=== PATIENT | male | born 1965 | race Caucasian/White ===

== ENCOUNTER 2017-04-04 12:21 | Emergency (ER) | payer OTHER, MEDICAID ==
[~2017-04-04] VITALS: Ht 185.4 cm; Wt 106.6 kg
[~2017-04-04 12:21] MED LIST: BACL20TA4 PO; GABA-636 PO; LAM25 PO
--- NOTE | 2017-04-04 12:28 | NUR ---
PATIENT STATED HE FEELS BETTER NOW AND DONT WANT TO BE SEEN AND WILL LEAVE AMA. SEEN BY DR. TATE AFTER BEING NOTIFIED. PATIENT REFUSED TREAT. AND VS TAKEN. PATIENT AWAKE ALERT ORIENTED. Addendum: 04/04/17 at [address] Tate spoke with the patient. The patient refused examination and left without being seen by Dr. Tate. No further medical treatment rendered. The patient signed AMA.
--- NOTE | 2017-04-04 12:30 | NUR ---
PATIENT AMA VIA HIS WHELLCHAIR
== END 2017-04-04 12:30 | disposition left against medical advice (07) ==
LOC: MED 12:21
DX: Z53.21 Procedure and treatment not carried out due to patient leaving prior to being seen by health care provider (principal)

== ENCOUNTER 2018-01-10 08:17 | Emergency (ER) | payer OTHER ==
[~2018-01-10] VITALS: Ht 185.4 cm; Wt 101.6 kg
[2018-01-10 08:31] VITALS: BP 161/105
[2018-01-10] MEDS ORDERED: NEOMYCIN/POLYMYXIN/BACITRACIN 0.9 GM/1 PKT TP ONE (09:28)
[2018-01-10 09:42] VITALS: BP 155/101
== END 2018-01-10 09:42 | disposition home or self-care (01) ==
LOC: MED 08:17
DX: L89.311 Pressure ulcer of right buttock, stage 1 (principal); Z88.6 Allergy status to analgesic agent; Z88.8 Allergy status to other drugs, medicaments and biological substances; G83.81 Brown-Sequard syndrome; Z79.899 Other long term (current) drug therapy
CPT/HCPCS: 99283

== ENCOUNTER 2018-01-19 20:24 | Emergency (ER) | payer OTHER ==
--- NOTE | 2018-01-19 20:44 | NUR ---
CALLED NAME IN ER LOBBY NO ANSWER
--- NOTE | 2018-01-19 21:01 | NUR ---
CALLED NAME IN ER LOBBY NO ANSWER
--- NOTE | 2018-01-19 21:19 | NUR ---
CALLED IN ER LOBBY, NO ANSWER. LWBS
== END 2018-01-19 20:44 | disposition left against medical advice (07) ==
LOC: MED 20:24
DX: Z53.21 Procedure and treatment not carried out due to patient leaving prior to being seen by health care provider (principal)

== ENCOUNTER 2018-06-28 08:54 | Emergency (ER) | payer OTHER ==
[~2018-06-28] VITALS: Ht 185.4 cm; Wt 101.2 kg
[2018-06-28 08:59] VITALS: BP 142/95
--- NOTE | 2018-06-28 08:59 | NUR ---
PT TO ER BED 9 VIA W/C
--- NOTE | 2018-06-28 09:02 | NUR ---
pt in restroom changing at his request s/p soiled himself.
--- NOTE | 2018-06-28 09:26 | NUR ---
PATIENT PRESENTS TO ED WITH c/o left knee pain x yesterday pt adds he usually uses to push/pull wheelchair--no edema noted DENIES N/V/D; SKIN IS PINK/WARM/DRY; AAOX4 WITH EVEN AND STEADY GAIT; LUNGS CLEAR BL; HR EVEN AND REGULAR; PT DENIES ANY FEVER, CP, SOB, OR COUGH AT THIS TIME; PATIENT STATES PAIN OF 7/10 AT THIS TIME; VSS; PATIENT POSITIONED FOR COMFORT; HOB ELEVATED; BEDRAILS UP X2; BED DOWN. ER MD MADE AWARE OF PT STATUS.
[2018-06-28] MEDS ORDERED: DEXAMETHASONE 10 MG/ML VIAL IM ONE (09:30)
--- NOTE | 2018-06-28 10:02 | NUR ---
X-RAY AT BEDSIDE
--- NOTE | 2018-06-28 10:58 | NUR ---
Patient discharged with v/s stable. Written and verbal after care instructions given and explained. Patient alert, oriented and verbalized understanding of instructions. Wheel Chair Assisted with to home. All questions addressed prior to discharge. ID band removed. Patient advised to follow up with PMD. Rx of voltaren given. Patient educated on indication of medication including possible reaction and side effects. Opportunity to ask questions provided and answered. homeless resources handed to pt as well---provided pt with a couple of wipes upon his request to take with him.
[2018-06-28 11:09] VITALS: BP 143/97
--- NOTE | 2018-06-28 11:15 | NUR ---
handed pt a sandwich upon request
== END 2018-06-28 10:58 | disposition home or self-care (01) ==
LOC: MED 08:54
DX: M17.12 Unilateral primary osteoarthritis, left knee (principal); G89.29 Other chronic pain; I10 Essential (primary) hypertension; Z76.0 Encounter for issue of repeat prescription; Z99.3 Dependence on wheelchair; Z79.899 Other long term (current) drug therapy; Z88.5 Allergy status to narcotic agent; Z88.8 Allergy status to other drugs, medicaments and biological substances
CPT/HCPCS: 73552; 73562; 96372; 99283; J1100; Q0092

== ENCOUNTER 2018-08-22 20:06 | Emergency (ER) | payer OTHER ==
[~2018-08-22] VITALS: Ht 185.4 cm; Wt 108.9 kg
[2018-08-22 20:15] VITALS: BP 181/118
--- NOTE | 2018-08-22 20:30 | NUR ---
PT WAS ABLETO GIVE A U/A SPECIMEN AND WAS SENT BACK TO [facility]
--- NOTE | 2018-08-22 21:32 | NUR ---
NO ANSWER AT 2131.
--- NOTE | 2018-08-22 21:47 | NUR ---
NO ANSWER AT 2134, 2146. PATIENT LEFT WITHOUT BEING SEEN BY DR. VALENTINE. NO FURTHER CARE PROVIDED FOR PATIENT.
== END 2018-08-22 21:47 | disposition left against medical advice (07) ==
LOC: MED 20:06
DX: M79.89 Other specified soft tissue disorders (principal); Z53.21 Procedure and treatment not carried out due to patient leaving prior to being seen by health care provider